=== PATIENT | female | born 1990 | race Caucasian/White ===

== ENCOUNTER 2024-07-12 11:41 | Emergency (ER) | payer SELFPAY ==
--- NOTE | ~2024-07-12 | CT_ITS ---
CLINICAL HISTORY: inractable headache CT head without contrast Comparison: None Findings: No intra-axial mass, midline shift, hydrocephalus, or acute hemorrhage. No significant atrophy-like change or white matter disease. The visualized paranasal sinuses and mastoid air cells are normal. The orbits are within normal limits. There is no acute fracture. IMPRESSION: 1. No acute intracranial findings. This document has been electronically signed by: Roosevelt Carpenter MD on 07/12/2024 19:10:19
--- NOTE | ~2024-07-12 | CT_ITS ---
CLINICAL HISTORY: RLQ pain CT abdomen and pelvis with contrast Comparison: None Findings: The visualized portions of the lungs are normal in appearance. The liver is enlarged without suspicious focal hepatic lesions. No intrahepatic or extrahepatic ductal dilatation is seen. The hepatic and portal veins are patent. No calcified gallstones in the gallbladder. Pancreas, spleen and adrenals are normal in appearance. No suspicious focal lesion of the kidneys. No hydronephrosis. There is excreted contrast in the bilateral collecting system. The abdominal aorta demonstrates no evidence of aneurysmal dilatation or dissection. There is a moderate amount of fecal material within the colon. There is bowel wall thickening of the ascending colon and descending colon. No evidence of bowel obstruction. Appendix is normal. The pelvic organs are within normal limits. No intraperitoneal free air or fluid is visualized. No pathologic lymphadenopathy is seen. There are no osseous or soft tissue abnormalities. IMPRESSION: Appendix is normal. Bowel wall thickening of the colon could represent colitis or inflammatory bowel disease. Correlation with colonoscopy findings as indicated. This document has been electronically signed by: Roosevelt Carpenter MD on 07/12/2024 19:52:45
--- NOTE | 2024-07-12 12:10 | ED.HA ---
HPI - Headache General Chief Complaint: General Medical Stated Complaint: Migraines R Side Pain Radiating Down Leg Time Seen by Provider: 07/12/24 15:03 Source: patient Mode of arrival: ambulatory Limitations: no limitations History of Present Illness ED Provider: KALYN MCPHERSON PA-C HPI Narrative: 34-year-old female presents to the ED today for evaluation of multiple concerns. She endorses right lower quadrant abdominal pain x1 week. States pain will intermittently radiate down her right lower extremity. Describes this as a cramping sensation. Admits to discontinuing Depo back in May. A few weeks after this, she had her 1st menses (beginning of June). States she is due for her menses however has not started it. States she is sexually active. Does not use protection. Admits to urinary frequency. Denies any dysuria or hematuria. Denies any vaginal bleeding or discharge. Denies fever, chills, nausea or vomiting. Pertinent abdominal surgery includes . Reports normal BMs. Last BM this morning. Also endorses headache x2 days. Describes this as a pressure sensation. Denies history of migraines. She does state that she had fluid buildup in my brain during her first . That is the only time she experienced migraine-like symptoms. Trialing OTC pain medications without improvement. Related Data Allergies Allergy/AdvReac Type Severity Reaction Status Date / Time iodine Allergy Hives Verified 07/12/24 12:14 latex Allergy Hives Verified 07/12/24 12:14 Review of Systems Review of Systems: Yes all other systems are reviewed and are negative [facility] Past Medical History Attestation statement: The following information was validated with the patient. Source: old records reviewed and nursing notes reviewed Social History Social History Advance Directives: No Advance Directives Information Provided: No Physical Exam Vital Signs: Vital Signs: Last Vital Signs Temp 98.3 F 07/12/24 21:16 Pulse 100 07/12/24 21:16 Resp 18 07/12/24 21:16 BP 113/73 07/12/24 21:16 Pulse Ox 100 07/12/24 21:16 O2 Del Method Room Air 07/12/24 21:16 BMI result Body Mass Index 26.4 Tachycardic General: Well appearing, in no acute distress. Skin: Warm, dry, intact. No rashes or lesions. Head: Normocephalic, atraumatic. EENT: Hearing is intact b/l. Conjunctiva clear. PERRLA. EOM intact. Moist mucous membranes.? Cardiac: Chest wall symmetric. RRR Lungs: Normal respiratory effort without accessory muscle use. CTA bilaterally.? Abdomen: soft, nondistended, tender to palpation of right lower quadrant. negative Rovsing sign. no rebound or guarding. active bs. Back: No midline spinous or paraspinal tenderness. No step off deformity. Ext: Upper and lower extremities atraumatic, without tenderness, deformity, swelling or erythema. Full ROM throughout. Strength 5/5 throughout. Capillary refill <2 seconds in all extremities. Pulses 2+ equal and bilateral. Neuro: AOx3. NIH 0. Normal speech. Ambulating with steady gait Course Course Course Narrative: This is a Rapid Medical Exam performed in triage by Oly English PA-C. Full HPI, ROS and PE to be performed by primary ED provider. 34-year-old female presenting to the ED c/o migraines, right sided & RLQ abd pain rad down RLE x 1 week. Due for menstruation, ?, took home test which was negative. [place] different that typical, constant, not relieved w/OTC meds. denies vag bleeding. +urinary frequency. denies dysuria/hematuria PE: abd soft w/RLQ/suprapubic ttp, no rebound or guarding. Mild right CVAT Plan: Labs, UA, urine , viral testing Reevaluation(s) Reevaluation #1: CBC without leukocytosis. no anemia, h&h stable. chemistry without acute electrolyte abnormality requiring intervention. No VICENTE. Transaminitis. No priors to compare to. Urine showing large leukocyte esterase, 3-5 RBCs, 6-10 WBCs, 6-10 squamous epithelial cells and 3+ urine bacteria. Negative COVID, flu, RSV. > CT head pending. Patient was treated with Toradol, Reglan and Benadryl for headache with improvement. 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 has never received contrast. will pretreat with benadryl/ solumedrol. Patient is stable at the end of my shift. Sign-out given to Javan CROSS pending image reads and disposition. Medications Administered Discontinued Medications Generic Name Dose Route Start Last Admin Trade Name Aidan PRN Reason Stop Dose Admin Diphenhydramine HCl 50 mg 07/12/24 15:24 07/12/24 15:50 Diphenhydramine Hcl 50 Mg/Ml Vial IVPUSH 07/12/24 15:25 50 mg ONCE ONE Administration Iohexol 100 ml 07/12/24 18:35 07/12/24 18:36 Iohexol 350 Mg/Ml 100 Ml Infus..Btl IV 07/12/24 18:36 85 ml ONCE ONE Administration Ketorolac Tromethamine 30 mg 07/12/24 15:24 07/12/24 15:41 Ketorolac Tromethamine 30 Mg/Ml Vial IVPUSH 07/12/24 15:25 30 mg ONCE ONE Administration Methylprednisolone Sodium Succinate 60 mg 07/12/24 16:13 07/12/24 17:17 Methylprednisolone Sod Succ 125 Mg/2 Ml Vial IVPUSH 07/12/24 16:14 60 mg ONCE ONE Administration Metoclopramide HCl 10 mg 07/12/24 15:24 07/12/24 15:42 Metoclopramide Hcl 10 Mg/2 Ml Vial IVPUSH 07/12/24 15:25 10 mg ONCE ONE Administration Medical Decision Making Medical Decision Making MDM Narrative: 34-year-old female presents to the ED today for evaluation of RLQ abd pain x1 week and headache x2 days. Differential diagnoses: appendicitis, diverticulitis, diverticulosis, UTI, IUP, constipation, anemia, electrolyte abnormality, dehydration, viral syndrome, migraine vs tension type headache Abdominal exam without peritoneal signs. No evidence of acute abdomen at this time. Well appearing. Low suspicion for acute hepatobiliary disease (including acute cholecystitis), acute infectious processes (pneumonia, hepatitis, pyelonephritis, PID, TOA), vascular catastrophe, bowel obstruction or viscus perforation, ovarian cyst/ rupture/ torsion. Presentation not consistent with other acute, emergent causes of abdominal pain at this time. No headache red flags. Neurologic exam without evidence of meningismus. No focal neurologic findings. Presentation not consistent with acute intracranial bleed including SAH. Presentation not consistent with acute BROOM MAN infection including meningitis or brain abscess. Temporal arteritis unlikely, as is acute angle closure glaucoma given history and physical findings. Presentation not consistent with other acute, emergent causes of headache at this time. Plan to treat symptomatically with pain medication. No indication for LP at this time. Plan for labs, viral swabs, CT head/ brain, CT abdomen /pelvis, pain control and re-evaluation Differential Diagnosis Differential Diagnoses: The differential diagnosis associated with the presentation includes as above. Admission/Observation not indicated Lab Data MDM Lab Attestation statement: I reviewed the patient's lab results. as above 07/12/24 12:37 07/12/24 12:37 Labs: Lab Results 07/12/24 Range/Units 12:37 WBC 9.9 (4.8-10.8) X10*3/uL RBC 4.60 (4.20-5.50) X10*6/uL Hgb 13.5 (12.0-16.0) g/dl Hct 40.4 (37.0-47.0) % MCV 87.8 (80.0-98.0) fL MCH 29.3 (27.0-33.0) pg MCHC 33.4 (31.0-35.0) g/dl RDW 12.3 (11.0-16.0) % Plt Count 240 (160-400) X10*3/uL MPV 10.5 (9.4-12.3) fL Immature Gran % (Auto) 0.2 (0.0-0.4) % Neut % (Auto) 79.9 H (45-73) % Lymph % (Auto) 14.2 L (20-40) % [place] % (Auto) 4.8 (2-11) % Eos % (Auto) 0.6 (0-4) % Baso % (Auto) 0.3 (0-2) % Lymph # (Auto) 1.4 (1.2-4.9) X10*3/uL [place] # (Auto) 0.5 (0.1-1.2) X10*3/uL Eos # (Auto) 0.1 (0.0-0.4) X10*3/uL Baso # (Auto) 0.0 (0.0-0.2) X10*3/uL Abs Immat Gran (auto) 0.02 (0.00-0.03) X10*3/uL Absolute Neuts (auto) 7.9 (2.0-8.3) x10*3/uL Absolute Nucleated RBC 0.000 (0.0-0.012) X10*3/uL Nucleated RBC % (auto) 0.0 (0.0-0.2) /100WBC Sodium 143 (135-145) mmol/L Potassium 3.7 (3.3-5.1) mmol/L Chloride 107 (96-108) mmol/L Carbon Dioxide 26 (22-29) mmol/L Anion Gap 14 (12-20) BUN 10 (9-16) mg/dL Creatinine 0.68 (0.5-1.4) mg/dL Estim Creat Clear Calc 101.2 Estimated GFR > 60 Random Glucose 94 (60-115) mg/dL Calcium 9.7 (8.4-10.2) mg/dL Magnesium 2.2 (1.6-2.6) mg/dL Total Bilirubin 0.5 (0.0-1.0) mg/dL Direct Bilirubin 0.1 (0.0-0.5) mg/dL AST 56 H (5-31) U/L ALT 92 H (0-31) U/L Alkaline Phosphatase 120 H (39-117) U/L Total Protein 7.6 (6.5-8.0) g/dL Albumin 4.5 (3.5-5.0) g/dL Lipase 24 (8-78) U/L Urine Color Yellow Urine Appearance Cloudy Urine pH 7.0 (5.0-9.0) Ur Specific [place] >= 1.030 H (1.005-1.025) Urine Protein Trace (Neg-Trace) mg/dL Urine Glucose (UA) Negative (Negative) mg/dL Urine Ketones Trace (Negative) mg/dL Urine Blood Negative (Negative) Urine Nitrite Negative (Negative) Ur Leukocyte Esterase Large (3+) H (Negative) Urine RBC 3-5 H (0-2) /HPF Urine WBC 6-10 (0-5) /HPF Ur Squamous Epith Cells 6-10 (0-2) /HPF Urine Bacteria 3+ (None Seen) Hyaline Casts 0-2 (0-2) /LPF Urine Test NEGATIVE (NEGATIVE) Influenza Type A (PCR) NEGATIVE (Negative) Influenza Type B (PCR) NEGATIVE (Negative) RSV RNA Qual (PCR) NEGATIVE (Negative) SARS-CoV-2 RNA (RT-PCR) NEGATIVE (Negative) Independent Interpretation I performed an independent interpretation of an: CT Scan Interpretation: ct head/brain without bleed or mass ct a/p without bowel obstruction Radiology Impression Discussion of test interpretation with radiology: I have reviewed the radiologist's reading. Radiologist Impression: IMPRESSION: Appendix is normal. Bowel wall thickening of the colon could represent colitis or inflammatory bowel disease. Correlation with colonoscopy findings as indicated. This document has been electronically signed by: Roosevelt Carpenter MD on 07/12/2024 19:52:45 Findings: No intra-axial mass, midline shift, hydrocephalus, or acute hemorrhage. No significant atrophy-like change or white matter disease. The visualized paranasal sinuses and mastoid air cells are normal. The orbits are within normal limits. There is no acute fracture. IMPRESSION: 1. No acute intracranial findings. This document has been electronically signed by: Roosevelt Carpenter MD on 07/12/2024 19:10:19 Procedure(s): CT head/brain wo IV con Accession Number(s): [id number] cc: Physician,None ; Kalyn Mcpherson~ Report Number: [id number]: Total DLP = 549.00 mGy-cm CLINICAL HISTORY: inractable headache CT head without contrast Comparison: None Findings: No intra-axial mass, midline shift, hydrocephalus, or acute hemorrhage. No significant atrophy-like change or white matter disease. The visualized paranasal sinuses and mastoid air cells are normal. The orbits are within normal limits. There is no acute fracture. IMPRESSION: 1. No acute intracranial findings. Prescription Management I considered prescription management with: Pain Medication Social Determinants Patient?s care significantly limited by Social Determinants of Health including: Other Social Determinant of Health Critical Care Time Critical Care Time Critical Care Time: No Discharge Plan Discharge Clinical Impression: Headache, Colitis Patient Disposition: Home, Self-Care Instructions: Acute Headache (ED), Colitis (ED) Additional Instructions: your workup in the ER today was reassuring. Your CT scan of your head did not show any concerning findings. The CT scan of your abdomen showed inflammation of the colon consistent with colitis. This is likely the cause of your abdominal pain. Your appendix was visualized as normal you may use a stool softener if you feel constipated, but I would be careful and avoid strong laxatives with colitis, as You may end up with persistent diarrhea a liquid diet is usually sufficient to treat mild colitis follow-up with your primary doctor, return for new or worsening symptoms Stand Alone Forms: Work/School Release Interventions: ED Discharge Assessment Last Done: 07/12/24 21:16 Discharge Date/Time: 07/12/24 21:16 Print Language: Nepali
[2024-07-12 12:11] VITALS: BP 113/73; PULSE 114; RESP 18; TEMP 36.8; O2SAT 100; BMI 26.4
[2024-07-12 12:43] LABS: MANUAL DIFF FLAG NO
[2024-07-12 12:44] LABS: Appearance Urine Cloudy; Color Urine Yellow; Glucose Urine UA Negative (Negative); Leukocyte Esterase Urine Large (3+) (Negative); Nitrite Urine Negative (Negative); Specific Gravity - Urine >= 1.030 (1.005-1.025); UMIC TRIGGER UACC YES; Urine Blood Negative (Negative); Urine Ketones Trace mg/dL (Negative); Urine Protein Trace mg/dL (Neg-Trace)
[2024-07-12 12:46] LABS: UPreg QC Valid YES; Urine Pregnancy NEGATIVE (NEGATIVE)
[2024-07-12 12:47] LABS: Basophils Percent Auto 0.3 % (0-2); Eosinophils Absolute Auto 0.1 X10*3/uL (0.0-0.4); Eosinophils Percent Auto 0.6 % (0-4); Hematocrit 40.4 % (37.0-47.0); Hemoglobin 13.5 g/dl (12.0-16.0); Imm Gran Abs Auto 0.02 X10*3/uL (0.00-0.03); Imm Gran Pct Auto 0.2 % (0.0-0.4); Lymphocytes Absolute Auto 1.4 X10*3/uL (1.2-4.9); Lymphocytes Percent Auto 14.2 % (20-40); Mean Corpuscular HGB Conc 33.4 g/dl (31.0-35.0); Mean Corpuscular Hemoglobin 29.3 pg (27.0-33.0); Mean Corpuscular Volume 87.8 fL (80.0-98.0); Mean Platelet Volume 10.5 fL (9.4-12.3); Monocytes Absolute Auto 0.5 X10*3/uL (0.1-1.2); Monocytes Percent Auto 4.8 % (2-11); Neutrophils Absolute Auto 7.9 x10*3/uL (2.0-8.3); Neutrophils Percent Auto 79.9 % (45-73); Platelet Count 240 X10*3/uL (160-400); Red Cell Distribution Width 12.3 % (11.0-16.0); White Blood Count 9.9 X10*3/uL (4.8-10.8)
[2024-07-12 12:58] LABS: Bacteria Urine 3+ (None Seen); Hyaline Casts Urine 0-2 /LPF (0-2); UACC Culture Trigger YES
[2024-07-12 13:00] LABS: Alanine Aminotransferase 92 U/L (0-31); Albumin Level 4.5 g/dL (3.5-5.0); Anion Gap 14 (12-20); Aspartate Amino Transferase 56 U/L (5-31); Bilirubin Direct 0.1 mg/dL (0.0-0.5); Bilirubin Total 0.5 mg/dL (0.0-1.0); Blood Urea Nitrogen 10 mg/dL (9-16); Calcium 9.7 mg/dL (8.4-10.2); Carbon Dioxide 26 mmol/L (22-29); Chloride 107 mmol/L (96-108); Creatinine Clr Calc Pharmacy 101.2; Estimated Glomerular Filt Rate > 60; Glucose Random 94 mg/dL (60-115); Lipase 24 U/L (8-78); Magnesium 2.2 mg/dL (1.6-2.6); Potassium 3.7 mmol/L (3.3-5.1); Sodium 143 mmol/L (135-145); Total Protein 7.6 g/dL (6.5-8.0)
[2024-07-12 13:14] LABS: Alkaline Phosphatase 120 U/L (39-117)
[2024-07-12 13:23] LABS: Influenza A PCR NEGATIVE (Negative); Influenza B PCR NEGATIVE (Negative); Resp Syncy Virus RNA Qual PCR NEGATIVE (Negative); SARS COV2 PCR INHOUSE NEGATIVE (Negative)
[2024-07-12] MEDS: Ketorolac Tromethamine 30 MG/ML VIAL IVPUSH (15:41)
[2024-07-12] MEDS: Metoclopramide HCl 10 MG/2 ML VIAL IVPUSH (15:42)
[2024-07-12] MEDS: diphenhydrAMINE HCL 50 MG/ML VIAL IVPUSH (15:50)
[2024-07-12] MEDS: methylPREDNISolone Sod Succ 125 MG/2 ML VIAL 60 MG IVPUSH (17:17)
[2024-07-12] MEDS: iohexoL 350 MG/ML 100 ML INFUS..BTL IV (18:36)
[2024-07-12 21:16] VITALS: BP 113/73; PULSE 100; RESP 18; TEMP 36.8; O2SAT 100
== END 2024-07-12 21:16 | disposition home or self-care (01) ==
PROVIDERS: Physician Assistant; Emergency Provider Emergency Medicine
DX: G43.909 Migraine, unspecified, not intractable, without status migrainosus (principal); K52.9 Noninfective gastroenteritis and colitis, unspecified; R10.31 Right lower quadrant pain; R35.0 Frequency of micturition; Z03.818 Encounter for observation for suspected exposure to other biological agents ruled out; Z79.899 Other long term (current) drug therapy
CPT/HCPCS: 0241U; 36415; 70450; 74177; 80048; 80076; 81001; 81025; 83690; 83735; 85025; 87086; 96374; 96375; 99284; J1200; J1885; J2765; J2919; Q9967

== ENCOUNTER → 2024-07-12 15:24 | Outpatient (BNV) | payer SELFPAY | PROVIDERS: Emergency Provider Emergency Medicine; Visit Provider Nuclear Medicine | DX: R10.31 Right lower quadrant pain (principal); G44.221 Chronic tension-type headache, intractable | CPT/HCPCS: 70450; 74177 ==